=== PATIENT | female | born 1965 | race Caucasian/White ===

== ENCOUNTER 2018-10-19 11:22 | Emergency (ER) | payer MEDICAID ==
[2018-10-19] MEDS: DIPHENHYDRAMINE 2.5 MG/ML 5ML CUP PO (14:39)
== END 2018-10-19 16:20 | disposition home or self-care (01) ==
LOC: FTE 16:20
DX: H05.221 Edema of right orbit (principal)
CPT/HCPCS: 99282; Z7502